=== PATIENT | female | born 1980 | race Caucasian/White ===

== ENCOUNTER → 2017-06-03 | Outpatient (CLI) | payer MEDICAID ==
[~2017-06-03] MED LIST: ALPRAZOLAM1 MG; APAP/BUTALBITAL1 TA1 PO; ATIVAN GENERIC 11 MG PO; AURALGAN O10 ML/BOTT OT; BACTRIM DS 8001 TA1 PO; BACTRIM DS 8001 TAB PO; CEPHALEXIN500 MG PO; CORTISPORIN (GE10 M1 OT; DOXYCYCLINE100 M1 PO; FLEXERIL10 MG PO; FLONASE 50 MCG16 GM; FLUOXETINE20 M2 PO; GABAPENTIN300 M1 PO; HYDROCHLOROTHIA25 M1 PO; KEFLEX 500MG.500 MG PO; LORTAB 5/500 501 TAB PO; NAPROXEN SODIU500 MG PO; PREDNISONE 20MG20 MG PO; SEPTRA DS 800 M1 TAB PO; TYLENOL325 MG PO; XANAX1 M1 PO; ZITHROMAX Z PA250 MG PO
[2017-06-03 16:04] LABS: AMPHETAMINES/METAMPHETAMINES NEGATIVE ng/mL (<1000)
== END ==
LOC: LAB 15:11
PROVIDERS: Nurse Practitioner Family
DX: Z79.899 Other long term (current) drug therapy (principal)

== ENCOUNTER → 2017-07-26 | Outpatient (CLI) | payer MEDICAID ==
[2017-07-26 18:11] LABS: HEMOGLOBIN 13.9 g/dL (12.2-16.2); LYMPH # 2.3 K/mm3 (0.7-4.5); LYMPH % 21.2 % (10-50.0)
[2017-07-26 18:47] LABS: BUN 14 mg/dL (7-18)
[2017-07-26 18:55] LABS: GFR (ESTIMATED) 95 ML/MIN (59-)
== END ==
LOC: LAB 17:01
PROVIDERS: Emergency Medicine
DX: I10 Essential (primary) hypertension (principal); R53.83 Other fatigue